=== PATIENT | male | born 1965 | race Caucasian/White ===

== ENCOUNTER → 2016-12-30 | Outpatient (CLI) | payer BC ==
[~2016-12-30] MED LIST: AMLODIPINE BESY10 MG PO; LISINOPRIL20 MG PO; NAPROSYN500 MG PO
--- NOTE | ~2016-12-30 | MR152 ---
[facility] A Service of [facility] & [facility] RADIOLOGY TEXT RESULTS PATIENT: ROBERTO ABEL LOCATION: [facility] : 63 UNIT #: [id number] AGE: [address]: Eric Marr MD SEX: M ORDER DR: [id number] [facility] [address] [place], [place] [address] [id number] O MR#: [id number] Acc #: [id number] NAME: ROBERTO ABEL : 1965 SEX: M STUDY DATE/TIME: 12/30/2016 17:56 UNIT: [facility] ROOM: STUDY DESCRIPTION: MR Pelvis Wo Contrast Attending Physician: Eric Marr M.D. Referring Physician: Eric Marr M.D. Ordering Physician: Eric Marr M.D. Primary Care Physician: Eric Marr M.D. MRI CENTER REPORT This report is preliminary unless electronic signature is present. EXAM MRI pelvis hip 12/30/2016. HISTORY Order states pelvis and hip pain. History sheet states left hip pain for 2 months. 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 Painful when using hip during the day. Burning pain. No injury. Bone spurs both hips. Doctor thinks left hip joint diminished. Hernia surgery. No hip surgery reported. COMPARISON No correlative studies. FINDINGS The hips show no effusion, fracture, or avascular necrosis. There is signal undermining the anterior-superior quadrant of the labrum on the left concerning for labral pathology without an associated paralabral cyst. No chondromalacia or high-grade arthritic change is noted. Minimal acetabular spurring is nonspecific. There is abnormal signal within the substance of and undermining the anterior-superior quadrant of the right hip labrum with probable associated paralabral cyst measuring at least 17 mm AP and possibly greater in the craniocaudal dimension. The labrum on the right in this area appears somewhat hypertrophied. Right hip shows no chondral/osteochondral lesion or visible loose body. Gluteal tendons are intact. The remainder of the bony pelvis, sacrum, and SI joints are normal. There is no muscle edema or atrophy. [facility] A Service of [facility] & [facility] RADIOLOGY TEXT RESULTS PATIENT: ROBERTO ABEL LOCATION: [facility] : 63 UNIT #: [id number] AGE: [address]: Eric Marr MD SEX: M ORDER DR: No hernia, lymphadenopathy, or internal pelvic pathology is noted. There is L5-S1 degenerative disc disease with endplate edema. You could consider MRI of the lumbar spine if clinically warranted. Included only on the coronal data set is at least left-sided L3-4 disc bulge with possible protrusion. The disc extrusion is not excluded and there is adjacent peridiscal soft tissue edema. Again, MRI of the lumbar spine should be considered given this level as a source of potential left hip pain. There is mild bilateral left greater than right hamstring origin enthesopathy without detachment or tear. On further review, there is mild gluteus minimus left peritendinous insertional edema without tear or detachment. Correlate for left greater trochanteric pain syndrome. There is no greater trochanteric bursal region fluid. IMPRESSION 1. Bilateral anterior-superior quadrant labral signal abnormality (actually more prominent on the asymptomatic right side) with a right paralabral cyst. Findings are suggestive of labral pathology which could be further characterized with MR arthrography. Orthopedic evaluation recommended to assess for potential clinical significance of these findings. 2. The hips are otherwise normal with no internal derangement. 3. Left gluteus minimus peritendinous preinsertional inflammation without tear or detachment. 4. L5 S1 degenerative disc disease with endplate edema. 5. Concern for L3-4 left sided disc herniation or bulge. There is peridiscal inflammation on the left. This could be a source of left hip pain. MRI lumbar spine recommended. 6. No internal pelvic pathology noted. Dictated by... Suzanna Leon M.D. THIS IS AN ELECTRONICALLY VERIFIED REPORT Suzanna Leon M.D. at 12/31/2016 12:32 PM PAM/davidson TD: 12/31/2016 12:09 JOB #: [id number] MRI CENTER REPORT Page 1 of 1 COPY
== END | disposition home or self-care (01) ==
LOC: CMRI 17:15
DX: R10.2 Pelvic and perineal pain (principal); R93.7 Abnormal findings on diagnostic imaging of other parts of musculoskeletal system; M24.852 Other specific joint derangements of left hip, not elsewhere classified; M24.851 Other specific joint derangements of right hip, not elsewhere classified; M76.02 Gluteal tendinitis, left hip; M51.37 Other intervertebral disc degeneration, lumbosacral region; M51.86 Other intervertebral disc disorders, lumbar region
CPT/HCPCS: 72195

== ENCOUNTER → 2017-01-12 | Outpatient (CLI) | payer BC ==
--- NOTE | ~2017-01-12 | MR113 ---
[facility] A Service of [facility] & [facility] RADIOLOGY TEXT RESULTS PATIENT: ROBERTO ABEL LOCATION: [facility] : 63 UNIT #: [id number] AGE: [address]: Eric Marr MD SEX: M ORDER DR: [id number] [facility] [address] [place], [place] [address] [id number] O MR#: [id number] Acc #: [id number] NAME: ROBERTO ABEL : 1965 SEX: M STUDY DATE/TIME: 01/12/2017 14:49 UNIT: [facility] ROOM: STUDY DESCRIPTION: MR Lumbar Wo Contrast Attending Physician: Eric Marr M.D. Referring Physician: Eric Marr M.D. Ordering Physician: Eric Marr M.D. Primary Care Physician: Eric Marr M.D. MRI CENTER REPORT This report is preliminary unless electronic signature is present. EXAM Unenhanced lumbar spine MRI date of study 01/12/2017 PROCEDURE Routine lumbar spine MRI without contrast COMPARISON None. HISTORY Low back pain left-sided weakness and a limp for about 6 months. FINDINGS Alignment is normal. Bone marrow signal is normal. The distal cord and conus are normal in position and appearance, and the paraspinous tissues are normal. There is what appears to be an intrathecal mass centered at just below the L2-3 disc. It is isointense to CSF on T2 imaging and slightly hyperintense to CSF on T1 imaging. It probably measures about 15 mm craniocaudal by about 9 mm AP and mediolateral. It likely represents a schwannoma among the nerve roots of the cauda quinine, but will be better depicted with postcontrast imaging. It is conceivable that it represents a small intrathecal cyst or other soft tissue lesion, but that is less likely. At L1-2, there is no canal stenosis but disc and endplate change cause mild right foraminal stenosis, and there is minimal, if any, left foraminal narrowing. At L2-3, disc and endplate change cause borderline to mild canal stenosis, but because of the intrathecal lesion. There is probably at least moderate if not moderate to severe effective canal stenosis. There is STS. [facility] A Service of [facility] & [facility] RADIOLOGY TEXT RESULTS PATIENT: ROBERTO ABEL [facility] UNIT #: [id number] AGE: [address]: Eric Marr MD SEX: M ORDER DR: minimal right and mild left foraminal stenosis. At L3-L4, there is slight degenerative change without canal stenosis and [id number] left and no right foraminal stenosis. At L4-L5, there is disc and endplate change and a left paracentral/foraminal disc protrusion. There is mild left lateral recess compromise and iezt-dm-hannujnh right and moderate left foraminal stenosis. At L5-S1, there is a right paracentral disc protrusion. It impinges on the right S1 root as it exits the thecal sac and enters the lateral recess. There is no mass effect on the left S1 root, and there is mild or iuag-mi-brwplyrm right and left foraminal stenosis. IMPRESSION 1. There are degenerative changes with some canal and foraminal narrowing and other nerve root impingement described in detail above, but there appears to be an intrathecal mass at the level of and just below the L2-3 disc, probably about 15 x 9 x 9 mm. It is fairly well seen on T1 images, but is isointense to CSF on T2 images. 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 A postcontrast study of the lumbar spine is strongly recommended for more definitive evaluation. 2. Please see the body of the report for level by level details regarding canal and foraminal compromise and degenerative change at other levels. Dictated by... Chaz Hinton M.D. THIS IS AN ELECTRONICALLY VERIFIED REPORT Chaz Hinton M.D. at 01/18/2017 5:22 PM TWILA/sebastian TD: 01/13/2017 15:18 JOB #: [id number] MRI CENTER REPORT Page 1 of 1 COPY
== END | disposition home or self-care (01) ==
LOC: CMRI 14:33
DX: M51.26 Other intervertebral disc displacement, lumbar region (principal); M47.896 Other spondylosis, lumbar region
CPT/HCPCS: 72148

== ENCOUNTER → 2017-01-20 | Outpatient (CLI) | payer BC ==
--- NOTE | ~2017-01-20 | MR111 ---
[facility] A Service of [facility] & [facility] RADIOLOGY TEXT RESULTS PATIENT: ROBERTO ABEL LOCATION: [facility] : 63 UNIT #: [id number] AGE: [address]: Eric Marr MD SEX: M ORDER DR: [id number] [facility] [address] [place], [place] [address] [id number] O MR#: [id number] Acc #: [id number] NAME: ROBERTO ABEL : 1965 SEX: M STUDY DATE/TIME: 01/20/2017 18:50 UNIT: [facility] ROOM: STUDY DESCRIPTION: MR Lumbar W Contrast Attending Physician: Eric Marr M.D. Referring Physician: Eric Marr M.D. Ordering Physician: Eric Marr M.D. Primary Care Physician: Eric Marr M.D. MRI CENTER REPORT This report is preliminary unless electronic signature is present. EXAM MRI of the lumbar spine with contrast HISTORY 51-year-old male with intrathecal extramedullary lesion lumbar spine. COMPARISON MRI of the lumbar spine without contrast, 01/12/2017 FINDINGS Multiplanar multiecho imaging was performed of the lumbar spine following IV gadolinium. 19 mL of MultiHance injected. The examination again demonstrates a intrathecal extramedullary lesion centered at or just below the L2-3 disc space measuring about 1.6 cm cephalocaudal dimension and about 1.0 x 0.7 cm in greatest transverse dimensions. The lesion does not appear to enhance postcontrast. As previously described, differential would include spinal schwannoma or possibly myxopapillary ependymoma, however given its lack of enhancement, both of these are considered less likely. Other considerations would include spinal epidermoid cyst. This may be more likely given its lack of enhancement. The lesion does produce mass effect with displacement of the adjacent nerve roots and it represents a space-occupying lesion within the central canal. This may be a contributing factor to the patient's clinical symptoms. No significant restricted diffusion is seen. There does appear to be adequate enhancement as the kidneys show normal cortical enhancement with gadolinium. There is multilevel degenerative disc disease which has previously been described in detail in previous noncontrast study. This is most prominent at L4-5 with a left paracentral disc protrusion which deforms the thecal sac contributing to moderate central canal stenosis and left lateral recess stenosis and probable displacement of the adjacent nerve roots. At L5-S1 there is a moderate sized central right paracentral disc protrusion [facility] A Service of [facility] RADIOLOGY TEXT RESULTS PATIENT: ROBERTO ABEL LOCATION: [facility] : 61 UNIT #: [id number] AGE: [address]: Eric Marr MD SEX: M ORDER DR: again with deformity of thecal sac and impingement of the descending right S1 nerve root. Paravertebral soft tissues unremarkable. IMPRESSION 1. Non-enhancing intrathecal extramedullary lesion centered at or just below the L2-3 disc space. Given the lack of enhancement, schwannoma or myxopapillary ependymoma considered less likely. Other considerations would include spinal epidermoid. Neural enteric cyst considered less likely given the imaging features and lack of spinal deformity. This does represent a space-occupying lesion and may be a contributing factor to the patient's clinical symptoms. 2. Multilevel degenerative disc disease as described on patient's previous MRI in detail. This is most pronounced L4-5 and at L5-S1, as detailed above. Dictated by... Dora Collins M.D. THIS IS AN ELECTRONICALLY VERIFIED REPORT Dora Collins M.D. at 01/21/2017 4:48 PM Vipin TD: 01/21/2017 15:44 JOB #: [id number] MRI CENTER REPORT Page 1 of 1 COPY
[2017-01-20 18:50] LABS: POC - CREATININE 1.16 mg/dL (0.64-1.27); POC - GFR >60.0 mL/min (>60)
== END | disposition home or self-care (01) ==
LOC: CMRI 18:07
PROVIDERS: Internal Medicine
DX: M89.8X8 Other specified disorders of bone, other site (principal); M51.36 Other intervertebral disc degeneration, lumbar region
CPT/HCPCS: 72149; 82565; A9577

== ENCOUNTER → 2017-02-26 | Outpatient (CLI) | payer BC ==
--- NOTE | ~2017-02-26 | MR31 ---
[facility] A Service of [facility] RADIOLOGY TEXT RESULTS PATIENT: ROBERTO ABEL LOCATION: [facility] : 63 UNIT #: [id number] AGE: [address]: Ankit Mancini IV, MD SEX: M ORDER DR: [id number] [facility] [address] [place], [place] [address] [id number] O MR#: [id number] Acc #: [id number] NAME: ROBERTO ABEL : 1965 SEX: M STUDY DATE/TIME: 02/26/2017 8:43 UNIT: [facility] ROOM: STUDY DESCRIPTION: MR Cervical WWo Contrast Attending Physician: Ankit Mancini IV, M.D. Referring Physician: Ankit Mancini IV, M.D. Ordering Physician: Physician Non-Staff Primary Care Physician: Eric Marr M.D. MRI CENTER REPORT This report is preliminary unless electronic signature is present. EXAM Cervical spine MRI with and without contrast 02/26/17. PROCEDURE Routine cervical spine MRI with without contrast. COMPARISON None. HISTORY Clinical history is left side weakness for 6 months. FINDINGS Alignment is normal. There are mild degenerative changes but bone marrow signal is otherwise normal. There is no marrow infiltration or replacement. Cord signal is normal. The posterior fossa, its contents and paraspinous soft tissues are normal. At C2-3, the canal and foramina are within normal limits. At C3-4 there is a disc and osteophyte complex, right-sided, with canal stenosis but no cord compression and mild left and moderate right foraminal stenosis. At 4-5. There is a disc and osteophyte complex with mild canal stenosis and no cord compression and mild right and no left foraminal stenosis. At 5-6. There is a left side predominant disc and osteophyte complex. The cord is slightly displaced but not compressed. There is mild right and moderate left foraminal stenosis. At 6-7 broad disc bulge and mild canal stenosis, and there may be mild cord compression but there is no abnormal cord signal. There is minimal [facility] A Service of [facility] RADIOLOGY TEXT RESULTS PATIENT: ROBERTO ABEL [facility] UNIT #: [id number] AGE: [address]: Ankit Mancini IV, MD SEX: M ORDER DR: right and moderate or moderate to severe left foraminal stenosis. At 7-1. The canal and foramina are normal. IMPRESSION Multilevel degenerative change, question mild cord compression without abnormal cord signal at 6-7. Please see above otherwise for details regarding canal and foraminal narrowing at htocf-ui-rzdgd basis but there is no abnormal cord signal at any level and no abnormal enhancement is seen. Dictated by... Chaz Hinton M.D. THIS IS AN ELECTRONICALLY VERIFIED REPORT Chaz Hinton M.D. at 03/04/2017 7:32 AM TEV/gz TD: 02/28/2017 16:28 JOB #: [id number] MRI CENTER REPORT Page 1 of 1 COPY
--- NOTE | ~2017-02-26 | MR17 ---
[facility] A Service of [facility] RADIOLOGY TEXT RESULTS PATIENT: ROBERTO ABEL LOCATION: [facility] : 61 UNIT #: [id number] AGE: [address]: Ankit Mancini IV, MD SEX: M ORDER DR: [id number] [place], [place] [address] [id number] O MR#: [id number] Acc #: [id number] NAME: ROBERTO ABEL : 1965 SEX: M STUDY DATE/TIME: 02/26/2017 8:15 UNIT: [facility] ROOM: STUDY DESCRIPTION: MR Brain WWo Contrast Attending Physician: Ankit Mancini IV, M.D. Referring Physician: Ankit Mancini IV, M.D. Ordering Physician: Physician Non-Staff Primary Care Physician: Eric Marr M.D. MRI CENTER REPORT This report is preliminary unless electronic signature is present. EXAM Brain MR with and without contrast 02/26/2017 PROCEDURE Routine brain MR with and without contrast. COMPARISON None. CLINICAL HISTORY Left side weakness for 6 months. FINDINGS There is no MR evidence of restricted diffusion. There is no hydrocephalus or extraaxial fluid collection. Bone marrow signal is normal. Normal flow voids are seen in the cerebral vessels. Brain parenchymal signal is essentially normal. There is some very slight periventricular nonspecific T2 signal change but signal is otherwise normal. The extracranial structures are unremarkable. Postcontrast images show no evidence of intracranial mass or abnormal enhancement. IMPRESSION Normal brain MR with and without contrast. Dictated by... Chaz Hinton M.D. THIS IS AN ELECTRONICALLY VERIFIED REPORT [facility] A Service of [facility] RADIOLOGY TEXT RESULTS PATIENT: ROBERTO ABEL LOCATION: [facility] : 61 UNIT #: [id number] AGE: [address]: Ankit Mancini IV, MD SEX: M ORDER DR: Chaz Hinton M.D. at 03/04/2017 7:32 AM TEV/mc TD: 02/28/2017 15:57 JOB #: [id number] MRI CENTER REPORT Page 1 of 1 COPY
--- NOTE | ~2017-02-26 | MR175 ---
[facility] A Service of [facility] RADIOLOGY TEXT RESULTS PATIENT: ROBERTO ABEL LOCATION: [facility] : 61 UNIT #: [id number] AGE: [address]: Ankit Mancini IV, MD SEX: M ORDER DR: [id number] [id number] [facility]. [place], [place] [address] [id number] O MR#: [id number] Acc #: [id number] NAME: ROBERTO ABEL : 1965 SEX: M STUDY DATE/TIME: 02/26/2017 9:12 UNIT: [facility] ROOM: STUDY DESCRIPTION: MR Thoracic WWo Contrast Attending Physician: Ankit Mancini IV, M.D. Referring Physician: Ankit Mancini IV, M.D. Ordering Physician: Zenia Dumont Primary Care Physician: Eric Marr M.D. MRI CENTER REPORT This report is preliminary unless electronic signature is present. EXAM Thoracic spine MRI with and without contrast DATE OF STUDY 02/26/2017 PROCEDURE Routine thoracic spine MRI with without contrast COMPARISON None CLINICAL HISTORY Back pain and left side weakness for 6 months. FINDINGS Thoracic spine alignment is normal. Bone marrow signal is within normal limits. Cord signal is normal. There is mild discogenic change at several levels, but no true canal stenosis and no cord compression at any level. Very slight canal narrowing at 5-6, 6-7, 7-8, 8-9, and 9-10 but again without true canal stenosis or cord compression. IMPRESSION Discogenic changes with minimal impact on the central canal. At one or two levels, these may even contact the ventral surface of the cord but there is no true canal stenosis or cord compression or abnormal cord signal at any level. Postcontrast images show no evidence of abnormal enhancement. Dictated by... [facility] A Service [facility] RADIOLOGY TEXT RESULTS PATIENT: ROBERTO ABEL LOCATION: [facility] : 61 UNIT #: [id number] AGE: [address]: Ankit Mancini IV, MD SEX: M ORDER DR: Chaz Hinton M.D. THIS IS AN ELECTRONICALLY VERIFIED REPORT Chaz Hinton M.D. at 03/04/2017 7:32 AM TEV/to TD: 02/28/2017 20:08 JOB #: [id number] MRI CENTER REPORT Page 1 of 1 COPY
== END | disposition home or self-care (01) ==
LOC: CMRI 07:51
DX: D49.2 Neoplasm of unspecified behavior of bone, soft tissue, and skin (principal); M47.892 Other spondylosis, cervical region; M99.81 Other biomechanical lesions of cervical region
CPT/HCPCS: 70553; 72156; 72157; A9577